=== PATIENT | female | born 1995 | race Caucasian/White ===

== ENCOUNTER 2018-09-13 03:29 | Emergency (ER) | payer OTHER ==
[~2018-09-13] VITALS: Ht 165.1 cm; Wt 68.2 kg
[2018-09-13 03:36] VITALS: TEMP 98.1
[2018-09-13] MEDS ORDERED: SEROQUEL300 MG PO (03:38)
[2018-09-13] MEDS ORDERED: LEXAPRO 10MG10 MG PO (03:39)
[2018-09-13] MEDS ORDERED: WELLBUTRIN SR150 M1 PO (03:39)
[2018-09-13] MEDS ORDERED: PREDNISONE20 MG PO (03:59)
[2018-09-13] MEDS ORDERED: EPIPEN 2-PAK1 MG/ML IM (03:59)
[2018-09-13 04:32] VITALS: BP 106/79; PULSE 106
== END 2018-09-13 04:32 | disposition home or self-care (01) ==
LOC: COL.ER 03:29
DX: L50.9 Urticaria, unspecified (principal); F41.9 Anxiety disorder, unspecified; F31.9 Bipolar disorder, unspecified; F17.210 Nicotine dependence, cigarettes, uncomplicated
CPT/HCPCS: J7512